=== PATIENT | male | born 1975 | race Caucasian/White ===

== ENCOUNTER → 2020-04-25 | Outpatient (CLI) | payer OTHER ==
--- NOTE | 2020-04-25 17:36 | RAD ---
3 view study of the left wrist Clinical indications: Left wrist pain. COMPARISON: None available. FINDINGS: The left wrist is immobilized in cast which obscures fine bony detail. No acute fracture or dislocation or lytic process is evident. The scaphoid bone is intact. IMPRESSION: No acute osseous abnormality. Electronically signed by: Shen Hudson MD (04/25/2020 5:33 PM) [id number]
== END | disposition home or self-care (01) ==
LOC: RAD 13:25
PROVIDERS: ATTEND Nurse Practitioner Family
DX: S69.82XA Other specified injuries of left wrist, hand and finger(s), initial encounter (principal); W19.XXXA Unspecified fall, initial encounter; Y93.89 Activity, other specified; Y92.89 Other specified places as the place of occurrence of the external cause; Y99.8 Other external cause status
CPT/HCPCS: 73110